=== PATIENT | male | born 1950 | race Caucasian/White ===

== ENCOUNTER 2023-06-14 14:13 | Emergency (ER) | payer BC ==
[~2023-06-14] VITALS: Ht 175.3 cm; Wt 77.1 kg
[2023-06-14 14:27] VITALS: BP 103/59; TEMP 98.5; O2SAT 98
== END 2023-06-14 16:45 ==
LOC: ER 14:15
DX: Z46.6 Encounter for fitting and adjustment of urinary device (principal); F41.9 Anxiety disorder, unspecified

== ENCOUNTER 2024-12-27 09:39 | Emergency (ER) | payer BC, OTHER ==
[~2024-12-27] VITALS: Ht 175.3 cm; Wt 78.0 kg
[2024-12-27] MEDS ORDERED: METOCLOPRAMIDE HCL 10 MG TABLET ONE (10:40)
[2024-12-27] MEDS ORDERED: ACETAMINOPHEN 325 MG TABLET ONE (10:40)
[2024-12-27] MEDS: ACETAMINOPHEN 325 MG TABLET PO ONE (10:44)
[2024-12-27] MEDS: METOCLOPRAMIDE HCL 10 MG TABLET PO ONE (10:44)
[2024-12-27 11:09] LABS: BASOPHILS % (AUTO) 0.5 % (0.0-2.0); EOSINOPHILS # (AUTO) 0.3 K/uL (0.0-0.7); EOSINOPHILS % (AUTO) 3.2 % (0.0-6.0); HEMATOCRIT 41 % (39-51); HEMOGLOBIN 13.9 g/dL (13.5-17.5); LYMPHOCYTES # (AUTO) 2.7 K/uL (0.8-4.8); LYMPHOCYTES % (AUTO) 33.1 % (20.0-44.0); MEAN CORPUSCULAR HEMOGLOBIN 35 PG (26.0-33.0); MEAN CORPUSCULAR HGB CONC 34 g/dl (31.0-36.0); MEAN CORPUSCULAR VOLUME 102 fL (80-96); MONOCYTES # (AUTO) 0.8 K/uL (0.1-1.30); NEUTROPHILS # (AUTO) 4.3 K/uL (1.8-8.9); NEUTROPHILS % (AUTO) 53.2 % (43.0-81.0); PLATELET COUNT (AUTO) 290 K/uL (150-450); RED BLOOD CELL COUNT(AUTO) 4.03 MIL/uL (4.5-6.0); WHITE BLOOD COUNT (AUTO) 8.1 K/uL (4.3-11.0)
[2024-12-27 11:21] LABS: CALCIUM, SERUM 8.6 mg/dL (8.5-10.1); CREATININE 1.1 mg/dL (0.6-1.3)
[2024-12-27 11:26] LABS: ALBUMIN 3.2 g/dL (3.4-5.0); BILIRUBIN,TOTAL 0.4 mg/dL (0.2-1.0); TOTAL PROTEIN, SERUM 6.6 g/dL (6.4-8.2)
[2024-12-27 14:00] VITALS: BP 102/60; TEMP 97.8; O2SAT 99
== END 2024-12-27 14:00 | disposition left against medical advice (07) ==
LOC: ER 09:57
DX: S05.11XA Contusion of eyeball and orbital tissues, right eye, initial encounter (principal); F41.9 Anxiety disorder, unspecified; Z86.69 Personal history of other diseases of the nervous system and sense organs; Z87.39 Personal history of other diseases of the musculoskeletal system and connective tissue; Y04.0XXA Assault by unarmed brawl or fight, initial encounter; Y93.89 Activity, other specified; Y92.89 Other specified places as the place of occurrence of the external cause; Y99.8 Other external cause status
CPT/HCPCS: 36415; 70450-TC; 70486-TC; 72125-TC; 80053-TC; 85025-TC; J8597